=== PATIENT | male | born 1965 | race Caucasian/White ===

== ENCOUNTER 2016-12-02 07:46 | Emergency (ER) | payer BC ==
[~2016-12-02] VITALS: Ht 180.3 cm; Wt 76.0 kg
[~2016-12-02 07:46] MED LIST: AMOX500T PO; BACI500O2 TOP; CARB6.5S5 EACH EAR; GABA100C4 PO; HYDR-3516 PO; SENN1TAB PO; WALKER WHEELS/F1 MIS; XARE10TA PO
[2016-12-02 07:48] VITALS: BP 186/90; PULSE 95; RESP 20; TEMP 98.6; O2SAT 96
[2016-12-02 08:09] VITALS: BP 103/70; PULSE 74; RESP 20; O2SAT 97
--- NOTE | 2016-12-02 08:11 | PD ---
HPI Chief Complaint: Respiratory Distress Time Seen by Provider: 08:11 Travel History International Travel<30 days: No Contact w/Intl Traveler<30days: No Traveled to known affect area: No History of Present Illness HPI 51-year-old male came to the emergency room with history of cough, shortness of breath and pain on his left side each time he coughs for past 4-5 days. Patient was in urgent care 2 days ago for the same symptoms and was started on Augmentin and chlorhexidine. Patient says he has been taking the medication. He is not sure why chlorhexidine was started. He did not complain of any oral lesions. Patient says the cough is still there and the pain is there. He is a smoker of 1-2 packs per day since he was 14 years old. Patient does not have any inhalers at home. He doesn't have a primary care doctor either. Vital signs were relatively stable in triage. No history of fever or chills. Sputum is yellowish in color. [facility] Past Medical History Narrative Medical List of his past medical, surgical, social and family history is reviewed from the nursing note. Medical History: Denies Significant Hx Arthritis: No Asthma: No Autoimmune Disease: No Anxiety: No Depression: No Heart Rhythm Problems: No Cancer: No Cardiovascular Problems: No High Cholesterol: No Chemotherapy: No Chest Pain: No Congestive Heart Failure: No COPD: No Cerebrovascular Accident: No Diabetes: No Diminished Hearing: No Endocrine: No GERD: No Genitourinary: No Hiatal Hernia: No Immune Disorder: No Kidney Stones: No Musculoskeletal: No Neurologic: No Psychiatric: No (childhood) Reproductive: No Respiratory: No Migraines: No Radiation Therapy: No Renal Failure: No Seizures: No Sickle Cell Disease: No Sleep Apnea: No Thyroid Disease: No Ulcer: No ?: Not Past Surgical History AICD: No Arteriovenous Shunt: No Insulin Pump: No Joint Replacement: Yes (02/21 left hip) Pacemaker: No Social History Alcohol Use: No Tobacco Use: Yes (1 ppd) Substance Use: No Allergies-Medications (Allergen,Severity, Reaction): Coded Allergies: bee venom protein (honey bee) (Unverified Allergy, Severe, Anaphylaxis, ) ibuprofen (Unverified Allergy, Severe, Hotflash, 12/02/16) Comments List of his allergies from the nursing note. Reported Meds & Prescriptions Reported Meds & Active Scripts Active Zithromax Z-Antonio (Azithromycin) 250 Mg Dspk 250 Mg PO DIRECTED 500 MG (2 tabs) day 1, then 1 tab days 2-5. Prednisone 20 Mg Tab 20 Mg PO BID 5 Days Ventolin Hfa 18 GM Inh (Albuterol Sulfate) 90 Mcg/Act Aer 2 Puff INH Q4-6H PRN Narrative Medication List of his medications reviewed from the nursing note. Review of Systems Except as stated in HPI: all other systems reviewed are Neg Physical Exam Narrative GENERAL: Awake, alert, mild distress SKIN: Focused skin assessment warm/dry. HEAD: Atraumatic. Normocephalic. EYES: Pupils equal and round. No scleral icterus. No injection or drainage. ENT: No nasal bleeding or discharge. Mucous membranes pink and moist. NECK: Trachea midline. No JVD. CARDIOVASCULAR: Regular rate and rhythm. No murmur appreciated. RESPIRATORY: No accessory muscle use. Decreased air entry bilaterally with end expiratory wheeze. No chest tenderness on palpation. GASTROINTESTINAL: Abdomen soft, non-tender, nondistended. Hepatic and splenic margins not palpable. MUSCULOSKELETAL: No obvious deformities. No clubbing. No cyanosis. No edema. NEUROLOGICAL: Awake and alert. No obvious cranial nerve deficits. Motor grossly within normal limits. Normal speech. PSYCHIATRIC: Appropriate mood and affect; insight and judgment normal. Data Data Last Documented VS Orders Orders Complete Blood Count With Diff (12/02/16 08:30) Basic Metabolic Panel (Bmp) (12/02/16 08:30) B-Type Natriuretic Peptide (12/02/16 08:30) Troponin I (12/02/16 08:30) Iv Access Insert/Monitor (12/02/16 08:30) Electrocardiogram (12/02/16 08:30) Ecg Monitoring (12/02/16 08:30) Oximetry (12/02/16 08:30) Oxygen Administration (12/02/16 08:30) Chest, Single Ap (12/02/16 08:30) Sodium Chloride 0.9% Flush (Ns Flush) (12/02/16 08:30) Methylprednisolone So Succ Inj (Solumedr (12/02/16 08:30) Albuterol-Ipratropium Neb (Duoneb Neb) (12/02/16 08:30) Labs Laboratory Tests Test 12/02/16 08:30 White Blood Count 9.3 TH/MM3 Red Blood Count 4.82 MIL/MM3 Hemoglobin 15.7 GM/DL Hematocrit 46.6 % Mean Corpuscular Volume 96.6 FL Mean Corpuscular Hemoglobin 32.5 PG Mean Corpuscular Hemoglobin Concent 33.7 % Red Cell Distribution Width 13.0 % Platelet Count 302 TH/MM3 Mean Platelet Volume 7.1 FL Neutrophils (%) (Auto) 57.3 % Lymphocytes (%) (Auto) 28.5 % Monocytes (%) (Auto) 8.1 % Eosinophils (%) (Auto) 5.2 % Basophils (%) (Auto) 0.9 % Neutrophils # (Auto) 5.3 TH/MM3 Lymphocytes # (Auto) 2.6 TH/MM3 Monocytes # (Auto) 0.7 TH/MM3 Eosinophils # (Auto) 0.5 TH/MM3 Basophils # (Auto) 0.1 TH/MM3 CBC Comment DIFF FINAL Differential Comment Blood Urea Nitrogen 17 MG/DL Creatinine 1.24 MG/DL Random Glucose 94 MG/DL Calcium Level 8.8 MG/DL Sodium Level 139 MEQ/L Potassium Level 3.9 MEQ/L Chloride Level 105 MEQ/L Carbon Dioxide Level 25.6 MEQ/L Anion Gap 8 MEQ/L Estimat Glomerular Filtration Rate 61 ML/MIN Troponin I LESS THAN 0.02 NG/ML B-Type Natriuretic Peptide 7 PG/ML MDM Medical Decision Making Medical Screen Exam Complete: Yes Emergency Medical Condition: Yes Medical Record Reviewed: Yes Interpretation(s) Twelve-lead EKG was reviewed by me. Normal sinus rhythm, normal axis, bradycardia, nonspecific ST-T wave changes. Heart rate of 55 bpm. Differential Diagnosis COPD exacerbation, bronchitis, pneumonia, ACS Narrative Course 9:30 AM blood test results are back and they're completely within acceptable limits. Chest x-ray was reviewed by me and does not show any infiltrate. Waiting for the official read. Patient was given IV steroid and DuoNeb treatment. Upon reassessment he says he feels much better. I intend to discharge him home with a bronchodilator inhaler and steroid prescription. Procedures EKG Prior to Arrival: No Diagnosis Primary Impression: COPD exacerbation Additional Impressions: Bronchitis Needs smoking cessation education Referrals: Primary Care Physician 3 days Additional Instructions: Please follow-up with your primary care in couple days. He needs to quit smoking or else the condition is currently get worse. Take the medication as per the prescription direction. You can stop taking amoxicillin that was given to you by urgent care and instead start herself on the new medication. Return to the ER if the condition worsens or any other new concerns. Med/Other Pt SpecificInfo: Prescription(s) given Scripts Azithromycin (Zithromax Z-Antonio) 250 Mg Dspk 250 MG PO DIRECTED for Infection, #1 DSPK 0 Refills 500 MG (2 tabs) day 1, then 1 tab days 2-5. Prov: Jonathan Cano MD 12/02/16 Prednisone (Prednisone) 20 Mg Tab 20 MG PO BID for 5 Days, #10 TAB 0 Refills Prov: Jonathan Cano MD 12/02/16 Albuterol 18 GM Inh (Ventolin Hfa 18 GM Inh) 90 Mcg/Act Aer 2 PUFF INH Q4-6H Y for SHORTNESS OF BREATH, #1 INHALER 0 Refills Prov: Jonathan Cano MD 12/02/16 Disposition: 01 DISCHARGE HOME Condition: Stable Jonathan Cano MD Dec 02, 2016 08:11
[2016-12-02] MEDS ORDERED: SODIUM CHLORIDE 0.9% FLUSH 10 ML FLUSH IVF PRN (08:30)
[2016-12-02] MEDS ORDERED: methylPREDNISolone SOD SUCC 125 MG/2 ML VIAL IV PUSH ONE (08:30)
[2016-12-02 08:42] VITALS: RESP 18; O2SAT 97
[2016-12-02 08:48] VITALS: O2SAT 97
[2016-12-02] MEDS: RESP: ALBUTEROL 2.5 MG/IPRATROPIUM 0.5 MG NEB (SCH) INH (08:48)
[2016-12-02 08:52] LABS: AUTOMATED NEUTROPHIL # 5.3 TH/MM3 (1.8-7.7); BASOPHIL # 0.1 TH/MM3 (0-0.2); BASOPHIL % 0.9 % (0.0-2.0); EOSINOPHIL # 0.5 TH/MM3 (0-0.4); EOSINOPHIL % 5.2 % (0.0-4.0); HEMATOCRIT 46.6 % (39.0-51.0); HEMO FLAGS DIFF FINAL; LYMPH % 28.5 % (9.0-44.0); LYMPHOCYTE # 2.6 TH/MM3 (1.0-4.8); MEAN CELL VOLUME 96.6 FL (80.0-100.0); MEAN CORPUSCULAR HEMOGLOBIN 32.5 PG (27.0-34.0); MEAN CORPUSCULAR HGB CONC 33.7 % (32.0-36.0); MONO % 8.1 % (0.0-8.0); NEUT % 57.3 % (16.0-70.0); PLATELET COUNT 302 TH/MM3 (150-450); RED BLOOD COUNT 4.82 MIL/MM3 (4.50-5.90); WHITE BLOOD COUNT 9.3 TH/MM3 (4.0-11.0)
[2016-12-02 09:11] LABS: ANION GAP 8 MEQ/L (5-15); BICARBONATE 25.6 MEQ/L (21.0-32.0); BLOOD UREA NITROGEN 17 MG/DL (7-18); CHLORIDE 105 MEQ/L (98-107); GLOMERULAR FILTRATION RATE 61 ML/MIN (>89); POTASSIUM 3.9 MEQ/L (3.5-5.1); SODIUM (NA) 139 MEQ/L (136-145)
[2016-12-02] MEDS ORDERED: ZITHTAB PO (09:33)
[2016-12-02] MEDS ORDERED: VENTAER INH (09:33)
[2016-12-02] MEDS ORDERED: PRED20 PO (09:33)
[2016-12-02 09:40] VITALS: BP 104/67
--- NOTE | 2016-12-02 09:42 | RADRPT ---
EXAM DATE/TIME: 12/02/2016 08:51 [facility] COMPARISON: CHEST SINGLE AP, March 03, 2016, 15:53. INDICATIONS : Chest pain with tightness left chest into left shoulder. Nausea, vomiting. MEDICAL HISTORY : None. SURGICAL HISTORY : None. ENCOUNTER: Initial ACUITY: 3 days PAIN SCORE: 7/10 LOCATION: Left chest FINDINGS: A single view of the chest demonstrates the lungs to be symmetrically aerated without evidence of mas s, infiltrate or effusion. The cardiomediastinal contours are unremarkable. Osseous structures are intact. CONCLUSION: Normal examination. Delbert Smith MD on December 02, 2016 at 9:40 Board Certified Radiologist. This report was verified electronically.
--- NOTE | 2016-12-02 12:14 | EKG ---
Date Performed: 12/02/2016 Time Performed: 08:42:52 PTAGE: 51 years EKG: SINUS BRADYCARDIA WITH SHORT MO INTERVAL BORDERLINE ECG Compared to prior tracing no signif icant change PREVIOUS TRACING : 03/03/2016 21.55 DOCTOR: Spike Torres Interpretating Date/Time 12/02/2016 12:11:17
== END 2016-12-02 09:59 | disposition home or self-care (01) ==
LOC: NEPE 07:46
DX: J44.1 Chronic obstructive pulmonary disease with (acute) exacerbation (principal); J20.9 Acute bronchitis, unspecified; F17.210 Nicotine dependence, cigarettes, uncomplicated
CPT/HCPCS: 71010; 80048; 83880; 84484; 85025; 93005; 94640; 94664; 96374; 99285; J2930

== ENCOUNTER 2016-12-22 03:39 | Inpatient (IN) | payer BC ==
[2016-12-22] VITALS (12 sets, daily range): BP systolic 95–131; BP diastolic 59–80; PULSE 76–98; RESP 16–36; TEMP 97.8–98.6; O2SAT 92–99
[~2016-12-22] VITALS: Ht 180.3 cm; Wt 67.3 kg
[~2016-12-22 03:39] MED LIST changes: -AMOX500T PO; -BACI500O2 TOP; -CARB6.5S5 EACH EAR; -GABA100C4 PO; -HYDR-3516 PO; +PRED20 PO; -SENN1TAB PO; +VENTAER INH; -WALKER WHEELS/F1 MIS; -XARE10TA PO; +ZITHTAB PO
[2016-12-22] MEDS ORDERED: SODIUM CHLORIDE 0.9% FLUSH 10 ML FLUSH IVF PRN (04:15)
[2016-12-22] MEDS ORDERED: methylPREDNISolone SOD SUCC 125 MG/2 ML VIAL IV PUSH ONE (04:15)
[2016-12-22] MEDS: RESP: ALBUTEROL 2.5 MG/IPRATROPIUM 0.5 MG NEB (SCH) INH ×4 (04:22→19:57)
[2016-12-22 04:31] LABS: AUTOMATED NEUTROPHIL # 5.2 TH/MM3 (1.8-7.7); BASOPHIL # 0.1 TH/MM3 (0-0.2); BASOPHIL % 0.8 % (0.0-2.0); EOSINOPHIL # 0.7 TH/MM3 (0-0.4); EOSINOPHIL % 7.6 % (0.0-4.0); HEMATOCRIT 44.9 % (39.0-51.0); HEMO FLAGS DIFF FINAL; LYMPH % 30.5 % (9.0-44.0); MEAN CELL VOLUME 97.6 FL (80.0-100.0); MEAN CORPUSCULAR HEMOGLOBIN 33.9 PG (27.0-34.0); MEAN CORPUSCULAR HGB CONC 34.7 % (32.0-36.0); MONO % 7.9 % (0.0-8.0); NEUT % 53.2 % (16.0-70.0); PLATELET COUNT 244 TH/MM3 (150-450); RED CELL DISTRIBUTION WIDTH 13.5 % (11.6-17.2); WHITE BLOOD COUNT 9.9 TH/MM3 (4.0-11.0)
[2016-12-22 04:47] LABS: ALT (GPT) 19 U/L (12-78); ANION GAP 7 MEQ/L (5-15); AST (GOT) 12 U/L (15-37); BICARBONATE 27.5 MEQ/L (21.0-32.0); BLOOD UREA NITROGEN 18 MG/DL (7-18); CHLORIDE 105 MEQ/L (98-107); GLOMERULAR FILTRATION RATE 57 ML/MIN (>89); MAGNESIUM 2.3 MG/DL (1.5-2.5); POTASSIUM 3.9 MEQ/L (3.5-5.1); SODIUM (NA) 139 MEQ/L (136-145)
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
[2016-12-22 04:51] LABS: ALKALINE PHOSPHATASE 73 U/L (45-117); CREATINE KINASE 227 U/L (39-308); TOTAL BILIRUBIN ADULT 0.5 MG/DL (0.2-1.0)
--- NOTE | 2016-12-22 04:55 | RADRPT ---
EXAM DATE/TIME: 12/22/2016 04:30 [facility] COMPARISON: CHEST SINGLE AP, December 02, 2016, 8:51. INDICATIONS : Shortness of breath x 1 hour MEDICAL HISTORY : Chronic obstructive pulmonary disease. SURGICAL HISTORY : Left hip Replacement ENCOUNTER: Initial ACUITY: 1 day PAIN SCORE: 5/10 LOCATION: Bilateral chest FINDINGS: A single view of the chest demonstrates the lungs to be symmetrically aerated without evidence of mas s, infiltrate or effusion. The cardiomediastinal contours are unremarkable. Osseous structures are intact. CONCLUSION: 1. No acute cardiopulmonary disease. Earnest Sultana MD on December 22, 2016 at 4:54 Board Certified Radiologist. This report was verified electronically.
[2016-12-22 05:03] LABS: CKMB 1.5 NG/ML (0.5-3.6)
[2016-12-22] MEDS ORDERED: LEVOFLOXACIN 750 MG PREMIX INJ 150 ML IV ONE (07:45)
[2016-12-22] MEDS ORDERED: RESP: ALBUTEROL 2.5 MG/3 ML NEB (SCH) NEB ONE (07:45)
[2016-12-22] MEDS ORDERED: MAGNESIUM HYDROXIDE SUSP 30 ML CUP PO PRN (08:15)
[2016-12-22] MEDS ORDERED: SODIUM CHLORIDE 0.9% FLUSH 10 ML FLUSH IV FLUSH PRN (08:15)
[2016-12-22] MEDS ORDERED: ONDANSETRON HCL 4 MG/2 ML VIAL IVP PRN (08:15)
[2016-12-22] MEDS ORDERED: NALOXONE HCL 0.4 MG/ML AMP IV PUSH PRN (08:15)
[2016-12-22] MEDS ORDERED: RESP: ALBUTEROL 2.5 MG/3 ML NEB (PRN) INH (08:15)
[2016-12-22] MEDS: methylPREDNISolone SOD SUCC 125 MG/2 ML VIAL IV PUSH SCH ×3 (09:47→21:33)
[2016-12-22] MEDS: ENOXAPARIN SODIUM 40 MG/0.4 ML SYRINGE SQ SCH (09:47)
[2016-12-22] MEDS: SODIUM CHLORIDE 0.9% FLUSH 10 ML FLUSH IV FLUSH SCH ×2 (09:47→21:33)
--- NOTE | 2016-12-22 10:26 | HHI.HP ---
[facility] [place] [facility] Primary Care Physician No Primary Care Physician Admission Diagnosis COPD exacerbation Diagnoses: (1) COPD exacerbation Diagnosis: Principal Travel History International Travel<30 Days: No Contact w/Intl Traveler <30 Da: No Traveled to Known Affected Are: No History of Present Illness Mr. Tilley is a 51-year-old male. He has COPD at baseline. He reports that for the past month his COPD has been exacerbated from baseline. He has quit smoking approximately 3 weeks ago. He has tried breathing treatments and some antibiotics as an outpatient, but thus far he's had no improvement. One week ago he ran out of his inhaled albuterol. His condition has worsened since then. This morning he woke up coughing and unable to breathe and came into emergency department for this. He's been treated with nebulized treatments and feels better when seen, but is still not yet to baseline. At this point he is not tolerating exertion. His functional status is not to baseline. He'll need further treatments prior to safe discharge. Review of Systems Constitutional: DENIES: Fatigue, Fever, Chills, Night Sweats Eyes: DENIES: Blurred vision, Diplopia, Eye inflammation, Eye pain Respiratory: COMPLAINS OF: Cough, Wheezing, Shortness of breath Cardiovascular: DENIES: Chest pain, Palpitations, Syncope Gastrointestinal: DENIES: Abdominal pain, Black stools, Bloody stools Musculoskeletal: DENIES: Joint pain, Muscle aches, Stiffness, Joint Swelling Integumentary: DENIES: Abnormal pigmentation, Nail changes, Pruritus, Rash Hematologic/lymphatic: DENIES: Bruising, Lymphadenopathy Immunologic/allergic: DENIES: Eczema, Urticaria Neurologic: DENIES: Abnormal gait, Headache, Paresthesias Psychiatric: DENIES: Anxiety, Confusion, Hallucinations Past Family Social History Past Medical History COPD Past Surgical History Left wrist surgery status post fracture Left hip surgery status post fracture Reported Medications Reported Meds & Active Scripts Active Zithromax Z-Antonio (Azithromycin) 250 Mg Dspk 250 Mg PO DIRECTED 500 MG (2 tabs) day 1, then 1 tab days 2-5. Prednisone 20 Mg Tab 20 Mg PO BID 5 Days Ventolin Hfa 18 GM Inh (Albuterol Sulfate) 90 Mcg/Act Aer 2 Puff INH Q4-6H PRN Allergies: Coded Allergies: bee venom protein (honey bee) (Unverified Allergy, Severe, Anaphylaxis, ) ibuprofen (Unverified Allergy, Severe, Hotflash, 12/02/16) Active Ordered Medications Administered Medications Medications (Trade) Dose Ordered Sig/Forrest Route PRN Reason Start Time Stop Time Status Last Admin Dose Admin Sodium Chloride (NS Flush) 2 ml BID IV FLUSH 12/22/16 09:00 12/22/16 09:47 Enoxaparin Sodium (Lovenox Inj) 40 mg Q24H SQ 12/22/16 09:00 12/22/16 09:47 Methylprednisolone Sodium Succinate (SoluMEDROL INJ) 60 mg Q6H IV PUSH 12/22/16 10:00 12/22/16 09:47 Family History Throat cancer in mother Colon cancer and cataracts in other family members Social History No alcohol abuse No illicit drug abuse Past history of smoking, quit 3 weeks ago Physical Exam Vital Signs Vital Signs Date Time Temp Pulse Resp B/P (MAP) Pulse Ox O2 Delivery O2 Flow Rate FiO2 12/22/16 08:26 99 12/22/16 07:14 97.8 76 20 111/70 (84) 96 Room Air 12/22/16 03:52 94 Room Air 12/22/16 03:50 95 Room Air 12/22/16 03:48 98.3 87 34 131/80 (97) 94 12/22/16 03:40 98.0 83 36 95/60 (72) 92 Room Air Physical Exam GENERAL: NAD, A&Ox3 HEAD: Normocephalic. NECK: Supple, trachea midline. No lymphadenopathy. EYES: No scleral icterus. No injection or drainage. CARDIOVASCULAR: Regular rate and rhythm without murmurs, gallops, or rubs. RESPIRATORY: Breath sounds equal bilaterally. No accessory muscle use. GASTROINTESTINAL: Abdomen soft, non-tender, nondistended. MUSCULOSKELETAL: No cyanosis, or edema. SKIN: Warm and dry. NEURO: No focal neurological deficitis. Laboratory Laboratory Tests Test 12/22/16 04:15 White Blood Count 9.9 Red Blood Count 4.60 Hemoglobin 15.6 Hematocrit 44.9 Mean Corpuscular Volume 97.6 Mean Corpuscular Hemoglobin 33.9 Mean Corpuscular Hemoglobin Concent 34.7 Red Cell Distribution Width 13.5 Platelet Count 244 Mean Platelet Volume 7.3 Neutrophils (%) (Auto) 53.2 Lymphocytes (%) (Auto) 30.5 Monocytes (%) (Auto) 7.9 Eosinophils (%) (Auto) 7.6 Basophils (%) (Auto) 0.8 Neutrophils # (Auto) 5.2 Lymphocytes # (Auto) 3.0 Monocytes # (Auto) 0.8 Eosinophils # (Auto) 0.7 Basophils # (Auto) 0.1 CBC Comment DIFF FINAL Differential Comment D-Dimer Quantitative (PE/DVT) 0.28 Blood Urea Nitrogen 18 Creatinine 1.32 Random Glucose 91 Total Protein 7.5 Albumin 4.0 Calcium Level 8.7 Magnesium Level 2.3 Alkaline Phosphatase 73 Aspartate Amino Transf (AST/SGOT) 12 Alanine Aminotransferase (ALT/SGPT) 19 Total Bilirubin 0.5 Sodium Level 139 Potassium Level 3.9 Chloride Level 105 Carbon Dioxide Level 27.5 Anion Gap 7 Estimat Glomerular Filtration Rate 57 Lactic Acid Level 1.8 Total Creatine Kinase 227 Creatine Kinase MB 1.5 Troponin I LESS THAN 0.02 B-Type Natriuretic Peptide 18 Date/Time Source Procedure Growth Status 12/22/16 04:15 Blood Peripheral Aerobic Blood Culture Pending Received 12/22/16 04:15 Blood Peripheral Anaerobic Blood Culture Pending Received Result Diagram: 12/22/16 0415 12/22/16 0415 Imaging Last Impressions Chest X-Ray 12/22/16409 Signed Impressions: Service Date/Time: Thursday, December 22, 2016 04:30 - CONCLUSION: 1. No acute cardiopulmonary disease. MD Dread Travis VTE Risk Assessment Caprini VTE Risk Assessment: No/Low Risk (score <= 1) Caprini Risk Assessment Model Point Value = 1 Point Value = 2 Point Value = 3 Point Value = 5 Age 41-60 Minor surgery BMI > 25 kg/m2 Swollen legs Varicose veins or History of unexplained or recurrent spontaneous Oral contraceptives or hormone replacement Sepsis (< 1 month) Serious lung disease, including pneumonia (< 1 month) Abnormal pulmonary function Acute myocardial infarction Congestive heart failure (< 1 month) History of inflammatory bowel disease Medical patient at bed rest Age 61-74 Arthroscopic surgery Major open surgery (> 45 min) Laparoscopic surgery (> 45 min) Malignancy Confined to bed (> 72 hours) Immobilizing plaster cast Central venous access Age >= 75 History of VTE Family history of VTE Factor V Leiden Prothrombin [id number] Lupus anticoagulant Anticardiolipin antibodies Elevated serum homocysteine Heparin-induced thrombocytopenia Other congenital or acquired thrombophilia Stroke (< 1 month) Elective arthroplasty Hip, pelvis, or leg fracture Acute spinal cord injury (< 1 month) Prophylaxis Regimen Total Risk Factor Score Risk Level Prophylaxis Regimen 0-1 Low Early ambulation 2 Moderate Order ONE of the following: *Sequential Compression Device (SCD) *Heparin 5000 units SQ BID 3-4 Higher Order ONE of the following medications: *Heparin 5000 units SQ TID *Enoxaparin/Lovenox 40 mg SQ daily (WT < 150 kg, CrCl > 30 mL/min) *Enoxaparin/Lovenox 30 mg SQ daily (WT < 150 kg, CrCl > 10-29 mL/min) *Enoxaparin/Lovenox 30 mg SQ BID (WT < 150 kg, CrCl > 30 mL/min) AND/OR *Sequential Compression Device (SCD) 5 or more Highest Order ONE of the following medications: *Heparin 5000 units SQ TID (Preferred with Epidurals) *Enoxaparin/Lovenox 40 mg SQ daily (WT < 150 kg, CrCl > 30 mL/min) *Enoxaparin/Lovenox 30 mg SQ daily (WT < 150 kg, CrCl > 10-29 mL/min) *Enoxaparin/Lovenox 30 mg SQ BID (WT < 150 kg, CrCl > 30 mL/min) AND *Sequential Compression Device (SCD) Assessment and Plan Problem List: (1) COPD exacerbation ICD Code: J44.1 - Chronic obstructive pulmonary disease with (acute) exacerbation Status: Acute Assessment and Plan Assessment and plan 51-year-old male admitted secondary to COPD exacerbation with outpatient treatment failure COPD exacerbation Outpatient treatment failure Continue oxygen supplements as needed Schedule duo nebs When necessary albuterol Azithromycin Systemic steroids Follow for improvement in respiratory status Follow for improvement in exertional tolerance next DVT prophylaxis Lovenox Physician Certification 2 Midnight Certification Type: Admission for Inpatient Services Order for Inpatient Services The services are ordered in accordance with Medicare regulations or non- Medicare payer requirements, as applicable. In the case of services not specified as inpatient-only, they are appropriately provided as inpatient services in accordance with the 2-midnight benchmark. Estimated LOS (days): 2 days is the estimated time the patient will need to remain in the hospital, assuming treatment plan goals are met and no additional complications. Post-Hospital Plan: Home Derik Wetzel MD Dec 22, 2016 10:26
--- NOTE | 2016-12-22 21:56 | EKG ---
Date Performed: 12/22/2016 Time Performed: 03:55:28 PTAGE: 51 years EKG: Sinus rhythm WITH SHORT WA INTERVAL BORDERLINE ECG Compared to prior tracing no significant change DOCTOR: Ezra Richardson Interpretating Date/Time 12/22/2016 21:56:23
[2016-12-23] MEDS: RESP: ALBUTEROL 2.5 MG/IPRATROPIUM 0.5 MG NEB (SCH) INH ×2 (03:54→09:53)
[2016-12-23 03:59] VITALS: O2SAT 95
[2016-12-23 04:00] VITALS: BP 96/51; PULSE 89; RESP 20; TEMP 98.3; O2SAT 95
[2016-12-23] MEDS: methylPREDNISolone SOD SUCC 125 MG/2 ML VIAL IV PUSH SCH ×2 (04:38→09:12)
[2016-12-23 08:00] VITALS: BP_SYST 117; BP_SYST 95; BP_DIAS 52; BP_DIAS 68; PULSE 86; PULSE 91; RESP 18; TEMP 97.8; TEMP 98.2; O2SAT 96
[2016-12-23 08:07] LABS: AUTOMATED NEUTROPHIL # 13.5 TH/MM3 (1.8-7.7); BASOPHIL % 0.2 % (0.0-2.0); HEMATOCRIT 41.2 % (39.0-51.0); HEMO FLAGS DIFF FINAL; LYMPH % 6.3 % (9.0-44.0); MEAN CELL VOLUME 98.4 FL (80.0-100.0); MEAN CORPUSCULAR HEMOGLOBIN 32.8 PG (27.0-34.0); MEAN CORPUSCULAR HGB CONC 33.4 % (32.0-36.0); MONO % 3.9 % (0.0-8.0); NEUT % 89.6 % (16.0-70.0); PLATELET COUNT 233 TH/MM3 (150-450); RED BLOOD COUNT 4.18 MIL/MM3 (4.50-5.90); RED CELL DISTRIBUTION WIDTH 13.2 % (11.6-17.2); WHITE BLOOD COUNT 15.1 TH/MM3 (4.0-11.0)
[2016-12-23 08:32] LABS: ANION GAP 8 MEQ/L (5-15); AST (GOT) 6 U/L (15-37); BICARBONATE 26.9 MEQ/L (21.0-32.0); BLOOD UREA NITROGEN 19 MG/DL (7-18); CHLORIDE 104 MEQ/L (98-107); GLOMERULAR FILTRATION RATE 71 ML/MIN (>89); POTASSIUM 3.9 MEQ/L (3.5-5.1); SODIUM (NA) 139 MEQ/L (136-145)
[2016-12-23 08:35] LABS: ALKALINE PHOSPHATASE 67 U/L (45-117); ALT (GPT) 17 U/L (12-78); TOTAL BILIRUBIN ADULT 0.2 MG/DL (0.2-1.0)
[2016-12-23] MEDS ORDERED: LEVOFLOXACIN 750 MG TAB PO SCH (09:00)
[2016-12-23] MEDS: ENOXAPARIN SODIUM 40 MG/0.4 ML SYRINGE SQ SCH (09:00)
[2016-12-23] MEDS: SODIUM CHLORIDE 0.9% FLUSH 10 ML FLUSH IV FLUSH SCH (09:13)
[2016-12-23 09:55] VITALS: O2SAT 95
[2016-12-23] MEDS ORDERED: PRED20 PO (13:24)
[2016-12-23] MEDS ORDERED: VENTAER INH (13:24)
[2016-12-23] MEDS ORDERED: LEVA500T20 PO (13:24)
[2016-12-23] MEDS ORDERED: ALBU0.08 INH (13:24)
[2016-12-23] MEDS ORDERED: NEBULIZER1 MI1 (13:25)
[2016-12-23] MEDS ORDERED: SYMB80AE INH (13:31)
--- NOTE | 2016-12-23 13:31 | HHI.DS ---
Discharge Summary Admission Date Dec 22, 2016 at 08:05 Discharge Date: Dec 23, 2016 Admitting Diagnosis COPD exacerbation (1) COPD exacerbation ICD Code: J44.1 - Chronic obstructive pulmonary disease with (acute) exacerbation Status: Acute Procedures None Brief History - From Admission Mr. Tilley is a 51-year-old male. He has COPD at baseline. He reports that for the past month his COPD has been exacerbated from baseline. He has quit smoking approximately 3 weeks ago. He has tried breathing treatments and some antibiotics as an outpatient, but thus far he's had no improvement. One week ago he ran out of his inhaled albuterol. His condition has worsened since then. This morning he woke up coughing and unable to breathe and came into emergency department for this. He's been treated with nebulized treatments and feels better when seen, but is still not yet to baseline. At this point he is not tolerating exertion. His functional status is not to baseline. He'll need further treatments prior to safe discharge. CBC/BMP: 12/23/16 0620 12/23/16 0620 Significant Findings Laboratory Tests Test 12/22/16 04:15 12/23/16 06:20 Eosinophils (%) (Auto) 7.6 % (0.0-4.0) Eosinophils # (Auto) 0.7 TH/MM3 (0-0.4) Creatinine 1.32 MG/DL (0.60-1.30) Aspartate Amino Transf (AST/SGOT) 12 U/L (15-37) 6 U/L (15-37) Estimat Glomerular Filtration Rate 57 ML/MIN (>89) 71 ML/MIN (>89) Troponin I LESS THAN 0.02 NG/ML White Blood Count 15.1 TH/MM3 (4.0-11.0) Red Blood Count 4.18 MIL/MM3 (4.50-5.90) Neutrophils (%) (Auto) 89.6 % (16.0-70.0) Lymphocytes (%) (Auto) 6.3 % (9.0-44.0) Neutrophils # (Auto) 13.5 TH/MM3 (1.8-7.7) Blood Urea Nitrogen 19 MG/DL (7-18) Random Glucose 154 MG/DL (74-106) Hospital Course Mr. Tilley is a 51 year old male. Came in secondary to COPD exacerbation with outpatient treatment failure. As an outpatient he had tried antibiotics and steroids. In the hospital antibiotics are changed from azithromycin to Levaquin. He is started on IV systemic steroids. He is also resumed on albuterol which he had ran out of approximately 1 week ago. She has improved faster than expected. COPD exacerbation is resolved and his breathing status is now back to baseline of oxygen tolerating room air well. He will continue on treatments at discharge as listed below. At this point is medically stable and cleared for discharge to home. Resumption of work will occur in 2 days. I have added a long-acting Symbicort inhaler also based on his history of using albuterol 4-6 times per day or more. Pt Condition on Discharge: Stable Discharge Disposition: Discharge Home Discharge Time: <= 30 minutes Discharge Instructions DIET: Follow Instructions for: As Tolerated, No Restrictions Activities you can perform: Regular-No Restrictions Follow up Referrals: PCP Follow-up - 2 Weeks New Medications: Budesonide-Formoterol Inh (Symbicort Inh) 80-4.5 Mcg/Act Aero 1 PUFF INH Q12HR for Asthma Management, #1 INHALER 0 Refills Levofloxacin (Levaquin) 500 Mg Tablet 500 MG PO DAILY for Infection, #4 TAB 0 Refills Nebulizer (Nebulizer) 1 Mis Mis EA .ROUTE DIRECTED for Breathing Treatment, #1 0 Refills Albuterol Neb (Albuterol Neb) 2.5 Mg/3 Ml Neb 2.5 MG INH Q2HR NEB PRN for SHORTNESS OF BREATH, #60 NEBULE Continued Medications: Albuterol 18 GM Inh (Ventolin Hfa 18 GM Inh) 90 Mcg/Act Aer 2 PUFF INH Q4-6H PRN for SHORTNESS OF BREATH, #1 INHALER 2 Refills (This prescription has been renewed) Prednisone (Prednisone) 20 Mg Tab 20 MG PO BID for Inflammation, #6 TAB 0 Refills (This prescription has been renewed) Discontinued Medications: Azithromycin (Zithromax Z-Antonio) 250 Mg Dspk 250 MG PO DIRECTED for Infection, #1 DSPK 0 Refills 500 MG (2 tabs) day 1, then 1 tab days 2-5. Derik Wetzel MD Dec 23, 2016 13:31
== END 2016-12-23 14:57 | disposition home or self-care (01) | DRG 192 ==
LOC: NEPE 03:39 → NEDA 07:48 → OBSVTOIN 08:05 → NEPGCP 10:54 → N04A 23:43
PROVIDERS: ADMIT Hospitalist; ATTEND Hospitalist
DX: J44.1 Chronic obstructive pulmonary disease with (acute) exacerbation (principal); Z87.891 Personal history of nicotine dependence; Z79.51 Long term (current) use of inhaled steroids; Z79.899 Other long term (current) drug therapy; Z96.642 Presence of left artificial hip joint
CPT/HCPCS: 71010; 80053; 82550; 82552; 83605; 83735; 83880; 84484; 85025; 85379; 87040; 93005; 94640; 94664; 99285; J1650; J1956; J2930; J7613